=== PATIENT | male | born 2000 | race Hispanic/Latino ===

== ENCOUNTER 2022-10-29 19:17 | Emergency (ER) | payer OTHER ==
[~2022-10-29] VITALS: Ht 170.2 cm; Wt 79.4 kg
[2022-10-29] MEDS ORDERED: TRAZODONE HCL150 MG PO (19:32)
[2022-10-29] MEDS ORDERED: HALOPERIDOL5 MG PO (19:33)
[2022-10-29] MEDS ORDERED: ABILIFY30 MG PO (19:33)
[2022-10-29] MEDS ORDERED: PAROXETINE HCL30 MG PO (19:33)
[2022-10-29] MEDS ORDERED: MELATONIN5 M2 PO (19:34)
--- NOTE | 2022-10-30 18:31 | EKG ---
[facility] [address] [facility] [place] [address] Signed Normal sinus rhythm Normal ECG When compared with ECG of 29-OCT-2022 19:24, (Unconfirmed) Sinus rhythm has replaced Ectopic atrial rhythm QRS axis shifted left Non-specific change in ST segment in Lateral leads T wave inversion no longer evident in Inferior leads Confirmed by DAYSI VELASCO MD ([id number]) on 10/30/2022 6:31:47 PM Electronically Signed By: DAYSI VELASCO MD 10/30/22 [id number] PATIENT NAME: LIDA DUKE Electrocardiogram DATE OF : [birth year] PHYSICIAN: DAYSI VELASCO MD REPORT #: [id number] REPORT IS CONFIDENTIAL AND NOT TO BE RELEASED WITHOUT AUTHORIZATION
== END 2022-10-29 20:47 | disposition home or self-care (01) ==
LOC: ED 19:17
DX: F20.0 Paranoid schizophrenia (principal); S31.139A Puncture wound of abdominal wall without foreign body, unspecified quadrant without penetration into peritoneal cavity, initial encounter; Z23 Encounter for immunization; Z79.899 Other long term (current) drug therapy; W22.8XXA Striking against or struck by other objects, initial encounter
CPT/HCPCS: 36415; 71045; 80053; 81003; 85025; 90471; 90472; 90714; 93005; 93010; 99285-25; G0480

== ENCOUNTER 2023-01-02 04:07 | Emergency (ER) | payer OTHER ==
[~2023-01-02] VITALS: Ht 170.2 cm; Wt 75.3 kg
[~2023-01-02 04:07] MED LIST: ABILIFY30 MG PO; HALOPERIDOL5 MG PO; MELATONIN5 M2 PO; PAROXETINE HCL30 MG PO; TRAZODONE HCL150 MG PO
== END 2023-01-02 06:32 | disposition home or self-care (01) ==
LOC: ED 04:07
DX: T71.162A Asphyxiation due to hanging, intentional self-harm, initial encounter (principal); Z79.899 Other long term (current) drug therapy
CPT/HCPCS: 36415; 70491; 72125; 80053; 85025; 99285-25; Q9967